=== PATIENT | male | born 1945 | race Caucasian/White ===

== ENCOUNTER 2016-07-28 15:47 | Emergency (ER) | payer MEDICARE ==
[2016-07-28] MEDS ORDERED: KETOROLAC TROMETHAMINE 60 MG/2 ML INJ. IM ONE (17:30)
[2016-07-28] MEDS ORDERED: ACETAMINOPHEN/CODEINE 300/30MG TABLET. PO ONE (17:30)
[2016-07-28 17:52] VITALS: BP 135/77
[2016-07-28] MEDS ORDERED: ACET-704 PO (17:55)
--- NOTE | 2016-07-28 17:55 | PHYS DOC ---
Past Medical History Past Medical History: COPD Past Surgical History: No Surgical History Alcohol Use: None Drug Use: None Adult General Chief Complaint Chief Complaint: MULTIPLE COMPLAINTS HPI HPI Patient is a 71 year old male who presents with technical recruiter for evaluation of bilateral low back pain, constant with fluctuating intensity, starting 3 days ago while helping someone move heavy stuff. He denies numbness, tingling, weakness, saddle anesthesia, bowel or bladder dysfunction. This pain is not improved with the Tylenol or ibuprofen at home. He also notes approximately 1 week of rhinorrhea, nasal congestion, dry cough, myalgia, and chills. He has been taking [id number] cold medicine that helps with his symptoms. He denies dyspnea, chest pain, rash, nausea or vomiting, fever or chills, diarrhea , headache. Review of Systems Review of Systems Constitutional: Denies measured fever [] Eyes: Denies change in visual acuity, redness, or eye pain [] HENT: Denies sore throat [] Respiratory: Denies shortness of breath [] Cardiovascular: No additional information not addressed in HPI [] GI: Denies abdominal pain, nausea, vomiting, bloody stools or diarrhea [] : Denies dysuria or hematuria [] Musculoskeletal: Denies joint pain [] Integument: Denies rash or skin lesions [] Neurologic: Denies headache, focal weakness or sensory changes [] Endocrine: Denies polyuria or polydipsia [] Current Medications Current Medications Current Medications Medications (Trade) Dose Ordered Sig/Mu Start Time Stop Time Status Last Admin Dose Admin Acetaminophen/ Codeine Phosphate (Tylenol #3) 1 tab 1X ONCE 07/28/16 17:30 07/28/16 17:31 DC 07/28/16 17:08 1 TAB Ketorolac Tromethamine (Toradol Im) 15 mg 1X ONCE 07/28/16 17:30 07/28/16 17:31 DC 07/28/16 17:11 15 MG Allergies Allergies Allergies Coded Allergies Type Severity Reaction Last Updated Verified No Known Drug Allergies 07/28/16 No Physical Exam Physical Exam Constitutional: Well developed, well nourished, no acute distress, non-toxic appearance. [] HENT: Normocephalic, atraumatic, bilateral external ears normal, oropharynx moist, no oral exudates, nose normal. [] Eyes: PERRLA, EOMI, conjunctiva normal, no discharge. [] Neck: Normal range of motion, no tenderness, supple. [] Cardiovascular:Heart rate regular rhythm [] Lungs & Thorax: Bilateral breath sounds clear to auscultation [] Abdomen: Bowel sounds normal, soft, no tenderness. [] Skin: Warm, dry, no erythema, no rash. [] Back: No midline spinal tenderness, no CVA tenderness. Has bilateral lumbar paraspinal tenderness with no visual or palpable abnormality. Negative straight leg raise bilaterally [] Extremities: No tenderness, ROM intact, no edema. [] Neurologic: Alert and oriented X 3, normal motor function, normal sensory function, no focal deficits noted. [] Psychologic: Affect normal, judgement normal, mood normal. [] Current Patient Data Vital Signs Vital Signs Date Time Temp Pulse Resp B/P Pulse Ox O2 Delivery O2 Flow Rate FiO2 07/28/16 17:52 62 14 135/77 94 Room Air 07/28/16 16:03 97.9 97.9 Course & Med Decision Making Course & Med Decision Making Pertinent Labs and Imaging studies reviewed. (See chart for details) His symptoms are improved after medications here. He would like to go home. Discussed further symptomatic care for symptoms. Return precautions given. He and technical recruiter understand and agree with plan. Dragon Disclaimer Dragon Disclaimer This electronic medical record was generated, in whole or in part, using a voice recognition dictation system. Departure Departure Impression: Primary Impression: Acute bilateral low back pain Additional Impression: Viral upper respiratory tract infection Disposition: HOME, SELF-CARE Condition: STABLE Referrals: NO PCP (PCP) Patient Instructions: Back Pain, Adult, [id number] Additional Instructions: Take ibuprofen as needed for moderate pain. Take Tylenol 3 as needed for severe pain. Do not drink, drive or operate heavy machinery after taking Tylenol 3 as it may make you sleepy. Follow-up with your primary care doctor within one week. Return for any concerns. Scripts Acetaminophen With Codeine (Tylenol With Codeine #3 Tablet)1 Each Tablet1 Tab PO PRN Q6HRS PRN PAIN #10 TAB Prov:Samy LÓPEZ MD 07/28/16 Problem Qualifiers Primary Impression: Acute bilateral low back pain Sciatica presence: without sciatica Qualified Code: M54.5 - Low back pain Samy LÓPEZ MD Jul 28, 2016 17:55
== END 2016-07-28 18:06 | disposition home or self-care (01) ==
LOC: ER 15:47
DX: M54.5 Low back pain (principal); J06.9 Acute upper respiratory infection, unspecified; J44.9 Chronic obstructive pulmonary disease, unspecified; M79.1 Myalgia
CPT/HCPCS: 96372; 99283; J1885

== ENCOUNTER 2016-07-31 12:03 | Emergency (ER) | payer MEDICARE ==
[~2016-07-31] VITALS: Ht 182.9 cm; Wt 65.4 kg
[~2016-07-31 12:03] MED LIST: ACET-704 PO
[2016-07-31 12:39] VITALS: BP 123/76
[2016-07-31] MEDS ORDERED: CYCL10TA2 PO (13:21)
[2016-07-31] MEDS ORDERED: ACET-704 PO (13:21)
--- NOTE | 2016-07-31 13:21 | PHYS DOC ---
Past Medical History Past Medical History: COPD, Pneumonia Past Surgical History: Other Additional Past Surgical Histo: skin cancer removal Additional Information: 04/09 ppd Alcohol Use: None Drug Use: None Adult General Chief Complaint Chief Complaint: LOWER BACK PAIN OR INJURY HPI HPI Patient is a 71 year old male who presents with bilateral low back pain that began 8-9 days ago after he helped somebody move. Patient states he lifted a box and twisted wrong. Patient denies any pain radiating to bilateral lower extremities. Denies any loss of bowel bladder function. He states he was given Tylenol number 4 which helped with this pain but he is out of them. He is in the ED with a caregiver. PCP Dr. العلي Review of Systems Review of Systems Constitutional: Denies fever or chills [] Eyes: Denies change in visual acuity, redness, or eye pain [] GI: Denies abdominal pain, nausea, vomiting, bloody stools or diarrhea [] : Denies dysuria or hematuria [] Musculoskeletal: Low back pain Integument: Denies rash or skin lesions [] Neurologic: Denies headache, focal weakness or sensory changes [] Endocrine: Denies polyuria or polydipsia [] Allergies Allergies Allergies Coded Allergies Type Severity Reaction Last Updated Verified No Known Drug Allergies 07/28/16 No Physical Exam Physical Exam Constitutional: Well developed, well nourished, no acute distress, non-toxic appearance. [] HENT: Normocephalic, atraumatic, bilateral external ears normal, oropharynx moist, no oral exudates, nose normal. [] Abdomen: Bowel sounds normal, soft, no tenderness, no masses, no pulsatile masses. [] Skin: Warm, dry, no erythema, no rash. [] Back: Diffuse tenderness paraspinal muscles of the lumbar region bilaterally, no midline tenderness, no CVA tenderness. [] Extremities: No tenderness, no cyanosis, no clubbing, ROM intact, no edema. [] Neurologic: Alert and oriented X 3, normal motor function, normal sensory function, no focal deficits noted. [] Psychologic: Affect normal, judgement normal, mood normal. [] Current Patient Data Vital Signs Vital Signs Date Time Temp Pulse Resp B/P Pulse Ox O2 Delivery O2 Flow Rate FiO2 07/31/16 12:39 97.9 76 20 123/76 93 Room Air 97.9 EKG EKG [] Radiology/Procedures Radiology/Procedures [] Course & Med Decision Making Course & Med Decision Making Pertinent Labs and Imaging studies reviewed. (See chart for details) Patient is in the ED with low back pain after lifting a heavy box 9 days ago, his pain is suspicious for lumbosacral strain. Discharged with Tylenol 3. Discharged with Flexeril and ibuprofen. Follow-up with PCP in one week. Dragon Disclaimer Dragon Disclaimer This electronic medical record was generated, in whole or in part, using a voice recognition dictation system. Departure Departure Impression: Primary Impression: Lumbosacral strain Disposition: HOME, SELF-CARE Condition: STABLE Referrals: NO PCP (PCP) DANILO العلي MD Follow-up with him in one week Patient Instructions: Lumbosacral Strain Additional Instructions: You were seen for lumbosacral strain. Take the prescribed medicines as ordered. Apply heat to your back. Follow-up with your doctor in the next 7 days. Scripts Acetaminophen With Codeine (Tylenol With Codeine #3 Tablet)1 Each Tablet1 Tab PO PRN Q6HRS PRN PAIN #20 TAB Prov:NICOLETTE NORRIS APRN 07/31/16 Cyclobenzaprine Hcl 10 Mg Tablet1 Tab PO TID #20 TAB Prov:NICOLETTE NORRIS APRN 07/31/16 Problem Qualifiers Primary Impression: Lumbosacral strain Encounter type: subsequent encounter Qualified Code: S39.012D - Strain of muscle, fascia and tendon of lower back, subsequent encounter NICOLETTE NORRIS APRN Jul 31, 2016 13:21
== END 2016-07-31 13:25 | disposition home or self-care (01) ==
LOC: ER 12:03
DX: S39.012A Strain of muscle, fascia and tendon of lower back, initial encounter (principal); J44.9 Chronic obstructive pulmonary disease, unspecified; F17.200 Nicotine dependence, unspecified, uncomplicated; X50.0XXA Overexertion from strenuous movement or load, initial encounter; X50.9XXA Other and unspecified overexertion or strenuous movements or postures, initial encounter; Y93.89 Activity, other specified; Y92.89 Other specified places as the place of occurrence of the external cause; Y99.8 Other external cause status
CPT/HCPCS: 99283